=== PATIENT | female | born 1935 | race Caucasian/White ===

== ENCOUNTER → 2017-01-07 | Day surgery (SDC) | payer BC ==
[~2017-01-07] MED LIST: BUPIVACAINE/EPINEPHRINE 0.5% PF 30 ML VIAL ONE; KETOROLAC TROMETHAMINE 30 MG/ML (IVP) VIAL ONE; LACTATED RINGER'S 1000 ML INJ 1,000 ML ONE; LIDOCAINE 1%/EPINEPHrine 1:100,000 SOLN 30 ML VIAL ONE; MEPERIDINE HCL 25 MG/ML VIAL ONE; MORPHINE SULFATE 4 MG/ML INJ ONE; ONDANSETRON HCL 4 MG/2 ML VIAL IV PUSH ONE; PROPOFOL 200 MG/20 ML AMP IV ONE; SODIUM CHLOR 0.9% 250 ML INJ 250 ML IV ONE; VANCOMYCIN HCL 1000 MG VIAL ONE
--- NOTE | 2017-01-07 10:36 | TN ---
cc: BLAIR CHILDS M.D. DATE OF SURGERY: 01/07/2017 PREOPERATIVE DIAGNOSIS Biliary colic. POSTOPERATIVE DIAGNOSIS Biliary colic with intraabdominal adhesions. PROCEDURE 1. Laparoscopic lysis of adhesions to gain access to the abdomen to perform 2. Laparoscopic cholecystectomy. ANESTHESIA General. SURGEON Dr. Childs. BILLIARD TABLE REPAIRER Ms. Stephanie Riley, Advanced Registered Nurse Practitioner. The [employer] was present from beginning to the end of the case assisting in all portions of the procedure. It was necessary to have this individual in the room to assist in the above surgical procedure. The surgical procedure was assisted by the [employer]. The [employer] presence was necessary throughout the case for appropriate retraction, dissection, visualization, and resection of the important anatomical structures during the surgical procedure. The [employer] was assisting throughout the entirety of the operation. The skill set of the [employer] is medically and surgically necessary to safely complete the surgical procedure. During the surgical case the operating room surgical brace maker was working instrument table and passing instruments to the attending surgeon and [employer] The [employer] was directly assisting the operating surgeon and involved in the technical aspects of the surgical case. INDICATIONS This is a pleasant 81-year-old female who had a fairly extensive workup. It was felt that she had biliary colic. Plans were made for above. PROCEDURE The patient was taken to the operating room and placed in the supine position. After endotracheal anesthesia her abdomen is prepped with Betadine solution. Time-out is done. We make a subxiphoid incision because of her previous low incision involving the umbilicus. Abdomen is entered, direct palpation, 10 trocar is placed. The abdomen is insufflated to 15 mmHg. Adhesions can be seen around the umbilicus in the right lower quadrant. We place a port 5 mm in the right upper quadrant. This allows us to take off the flimsy adhesions around the umbilicus which were all omentum without any bowel. Once these adhesions were all taken down with a combination of blunt dissection and sharp dissection and electrocautery we then are able to place a 5 mm port just below the umbilicus through a previous incision. A second 5 mm port was placed in the midline between the two previously placed ports. The liver is smooth, peritoneal surface is smooth and some other adhesions were taken down by blunt dissection and we are able to grasp the gallbladder which is quite floppy and grasp it superior and laterally with the three working ports. The cystic duct is identified, doubly ligated, transected, cystic artery was almost nonexistent and it is ligated with hemoclip and transected. The gallbladder is then teased off the gallbladder bed and then placed in EndoCatch, pulled out through the umbilical incision and we do palpate it and I do not feel any stones. There may be some small cholesterolosis present. We will wait for the pathology report. We then recheck our dissection site. There is excellent hemostasis without biliary leakage. Some other adhesions were taken down in the right lower quadrant ___ omentum and no other gross abnormalities seen. Liver is smooth. Peritoneal surfaces are smooth. The CO2 is then removed. The fascial layer at the subxiphoid incision is closed with 0 Vicryl. Skin is closed with 4-0 Vicryl. Steri-Strips were applied. Sterile bandage was applied. The patient tolerated the procedure well and had no immediate postop complications. Blair Childs MD JDB/[id number] /9:03 AM /10:21 AM JULIO
== END | disposition home or self-care (01) ==
LOC: ESDC 06:32
PROVIDERS: ATTEND Surgery
DX: K80.10 Calculus of gallbladder with chronic cholecystitis without obstruction (principal); K66.0 Peritoneal adhesions (postprocedural) (postinfection)
CPT/HCPCS: 00790; 47562; 88304; J1885; J2175; J2270; J2405; J3010; J3370; J7050; J7120